=== PATIENT | female | born 1935 | race Caucasian/White ===

== ENCOUNTER 2017-02-16 11:35 | Emergency (ER) | payer MEDICARE, OTHER ==
[2017-02-16] MEDS ORDERED: Bacitracin Zinc 1 Packet ONE (14:17)
--- NOTE | 2017-02-16 14:19 | RAD ---
FOUR VIEWS CERVICAL SPINE: INDICATION: Fall with head pain and neck pain. FINDINGS: There is moderate to severe multilevel facet osteoarthritic change involving the cervical spine. Pro minent degenerative disk disease is seen at C6-7. There is slight anterior translation of C3 on C4 a nd C5 on C6 which is likely degenerative in nature. No acute fracture is evident. Prevertebral soft tissues are normal appearing. Lateral masses are symmetric. Lung apices are clear. IMPRESSION: 1. No acute fracture or subluxation. 2. Moderate to prominent spondylosis of the cervical spine. POS: [facility]
== END 2017-02-16 15:13 | disposition home or self-care (01) ==
LOC: ERS 11:35
DX: S00.83XA Contusion of other part of head, initial encounter (principal); S50.812A Abrasion of left forearm, initial encounter; I10 Essential (primary) hypertension; E03.9 Hypothyroidism, unspecified; G70.00 Myasthenia gravis without (acute) exacerbation; Z79.899 Other long term (current) drug therapy; W01.10XA Fall on same level from slipping, tripping and stumbling with subsequent striking against unspecified object, initial encounter
CPT/HCPCS: 72040

== ENCOUNTER 2018-06-19 09:55 | Day surgery (SDC) | payer MEDICARE, OTHER ==
[2018-06-18 13:57] VITALS: BMI 27.3
[~2018-06-19 09:55] MED LIST: PROPOFOL 200 MG/20 ML VIAL ONE
--- NOTE | 2018-06-19 13:14 | OP ---
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 PROCEDURES PERFORMED: Colonoscopy with snare polypectomy. INDICATIONS: 1. Rectal bleeding. 2. Discharge from anus. 3. Personal history of colon polyps, with last colonoscopy almost 5 years ago. MEDICATIONS: See Anesthesia record. FINDINGS: After discussion of the risks, benefits, and alternatives of the procedure, informed consent was obtained and witnessed. Pre-endoscopic cardiopulmonary examination was satisfactory. Time-out was performed before sedation was achieved. Sedation was achieved with Anesthesia assistance in the endoscopy unit. Digital rectal exam was performed. The patient has a prolapsing anal polyp, which is pedunculated. At first, this appeared to look like a prolapsing hemorrhoid, but upon better examination with the scope, it had a characteristic frondlike and pitted appearance more consistent with a polyp. A Pentax adult colonoscope was inserted and forward and retroflexed views of the rectum were obtained. This anal polyp is pedunculated measuring about 1.2 cm in diameter, and it bases in an area of large internal hemorrhoids. I did not obtain biopsies or try to resect this polyp due to its location. The endoscope was then advanced forward to the cecum in the usual fashion. The cecal base was identified by the appendiceal orifice as well as the ileocecal valve. The terminal ileum was not intubated. The colonoscope was then slowly withdrawn in a gradual and circumferential manner with careful examination of the entire colonic mucosa. The quality of the prep was good. There was a tiny 1 mm sessile polyp in the cecum, which was completely removed with cold snare and retrieved for pathology. In the ascending colon, there was a 3 mm sessile polyp, which was completely removed with cold snare and retrieved for pathology. In the sigmoid colon, there was another tiny polyp measuring 1 or 2 mm, which was completely removed with cold snare and retrieved for pathology. There were a few small diverticula in the sigmoid colon. The remainder of the colonic mucosa appears normal. Re-examination of the rectum again demonstrated the 1.2 cm pedunculated anal polyp, which I did not resect, as well as large internal hemorrhoids. The colonoscope was completely withdrawn and the patient allowed to recover. The patient tolerated the procedure well. There were no immediate postprocedure complications. IMPRESSION: 1. 1.2 cm pedunculated anal polyp, not biopsied or removed on this examination. 2. Large internal hemorrhoids. 3. 1 mm cecal polyp, completely removed with cold snare and retrieved for pathology. 4. 3 mm ascending colon polyp, completely removed with cold snare and retrieved for pathology. 5. 1 to 2 mm tiny sigmoid polyp, completely removed with cold snare and retrieved for pathology. 6. Sigmoid diverticulosis. RECOMMENDATIONS: 1. Follow up pathology on the colon polyps. 2. Surgical referral for transanal excision of the anal polyp, also consideration of hemorrhoidectomy. 3. Consider followup colonoscopy at a 3-year interval, due to her significant personal history of polyps. We would discuss surveillance at that time prior to proceeding, due to the patient's age and comorbidities. Job ID: [id number]
== END 2018-06-19 13:15 | disposition home or self-care (01) ==
LOC: SDC 09:55
PROVIDERS: ATTEND Internal Medicine
PROC: 0DBK8ZX Excision of Ascending Colon, Via Natural or Artificial Opening Endoscopic, Diagnostic (ICD-10-PCS; principal; 2018-06-19)
PROC: 0DBN8ZX Excision of Sigmoid Colon, Via Natural or Artificial Opening Endoscopic, Diagnostic (ICD-10-PCS; 2018-06-19)
PROC: 0DBH8ZX Excision of Cecum, Via Natural or Artificial Opening Endoscopic, Diagnostic (ICD-10-PCS; 2018-06-19)
DX: K62.5 Hemorrhage of anus and rectum (principal); D12.0 Benign neoplasm of cecum; D12.5 Benign neoplasm of sigmoid colon; K63.5 Polyp of colon; K64.8 Other hemorrhoids; K57.30 Diverticulosis of large intestine without perforation or abscess without bleeding; K62.0 Anal polyp; G70.00 Myasthenia gravis without (acute) exacerbation; Z86.010 Personal history of colon polyps; Z79.899 Other long term (current) drug therapy; Z88.4 Allergy status to anesthetic agent; Z88.5 Allergy status to narcotic agent; Z88.8 Allergy status to other drugs, medicaments and biological substances
CPT/HCPCS: 88305; J2704

== ENCOUNTER 2018-07-01 09:51 | Outpatient (CLI) | payer MEDICARE, OTHER | END 2018-07-01 09:52 | disposition home or self-care (01) | LOC: LABBT 09:51 | PROVIDERS: ATTEND Surgery | DX: Z01.818 Encounter for other preprocedural examination (principal); K64.8 Other hemorrhoids; K62.0 Anal polyp | CPT/HCPCS: 93005; 93010 ==

== ENCOUNTER 2018-07-08 06:00 | Day surgery (SDC) | payer MEDICARE, OTHER ==
[2018-07-01 09:57] VITALS: BMI 27.5
[2018-07-08] MEDS ORDERED: Sodium Chloride 0.9% 100 ML ONE (06:45)
[2018-07-08] MEDS ORDERED: cefOXitin 2 GM VIAL ONE (06:45)
[2018-07-08] MEDS ORDERED: Fentanyl 100 MCG/2 ML VIAL ONE (06:56)
[2018-07-08] MEDS ORDERED: Famotidine/PF 20 mg/2ml Vial ONE (07:26)
[2018-07-08] MEDS ORDERED: Bupivacaine/Epinephrine 0.25% 30 ML VIAL ONE (07:59)
[2018-07-08] MEDS ORDERED: PROPOFOL 200 MG/20 ML VIAL ONE (14:20)
[2018-07-08] MEDS ORDERED: ePHEDrine 50 MG/ML VIAL ONE (14:20)
[2018-07-08] MEDS ORDERED: Dexamethasone 20 MG/5 ML VIAL ONE (14:20)
[2018-07-08] MEDS ORDERED: Ondansetron PF 4 MG/2 ML Vial ONE (14:20)
--- NOTE | 2018-07-08 15:21 | OP ---
DATE OF PROCEDURE: 07/08/2018 PREOPERATIVE DIAGNOSES: 1. Internal hemorrhoids. 2. Rectal mass. POSTOPERATIVE DIAGNOSES: 1. Internal hemorrhoids. 2. Rectal mass. PROCEDURES PERFORMED: 1. Transanal excision of rectal mass. 2. PPH-stapled hemorrhoidectomy. ANESTHESIA: General. ESTIMATED BLOOD LOSS: Minimal. COMPLICATIONS: None. SPECIMENS: 1. Polypoid anorectal mass. 2. Internal hemorrhoids. DESCRIPTION OF PROCEDURE: The patient was taken to the operating room and laid supine on the operating room table. After general anesthetic was obtained, she was placed in the prone position. Her buttock crease was taped open. Her perineal and anal areas were prepped and draped in a sterile fashion. The polypoid mass was easily seen just above the dentate line. It was cauterized and excised with a good gross margin and sent to [facility] for final diagnosis. The obturator and sphincter protector were then placed in the anal canal and used to protect the sphincter muscles during the hemorrhoidectomy portion of the procedure. This was sutured to the perianal skin using silk suture. A pursestring of Prolene was placed above the dentate line. This pursestring was tied down loosely to hold the anvil in place above the hemorrhoids. The stapler was closed within the green zone and fired. There was a good ring of tissues obtained. A few bleeders on the staple line were oversewn using Vicryl sutures. The base of the polypoid mass that was removed. This included with the ring of hemorrhoids. Gelfoam was packed in the anal canal. The patient was sent to Recovery in stable condition. All instrument counts, needle counts, and lap counts were correct. Job ID: [id number]
== END 2018-07-08 10:28 | disposition home or self-care (01) ==
LOC: SDC 06:00
PROVIDERS: ATTEND Surgery
PROC: 06BY3ZC Excision of Hemorrhoidal Plexus, Percutaneous Approach (ICD-10-PCS; principal; 2018-07-08)
PROC: 0DBQ7ZX Excision of Anus, Via Natural or Artificial Opening, Diagnostic (ICD-10-PCS; 2018-07-08)
DX: K64.8 Other hemorrhoids (principal); D12.9 Benign neoplasm of anus and anal canal; J45.909 Unspecified asthma, uncomplicated; K21.9 Gastro-esophageal reflux disease without esophagitis; M19.90 Unspecified osteoarthritis, unspecified site; E03.9 Hypothyroidism, unspecified; Z88.4 Allergy status to anesthetic agent; Z88.5 Allergy status to narcotic agent; Z88.8 Allergy status to other drugs, medicaments and biological substances; Z79.899 Other long term (current) drug therapy
CPT/HCPCS: 88304; 88305; J0131; J0694; J1100; J2405; J2704; J3010; J3490; S0028

== ENCOUNTER 2018-10-22 11:43 | Inpatient (IN) | payer MEDICARE, OTHER ==
--- NOTE | 2018-10-22 11:59 | CT ---
CT Brain WO Con: 10/22/2018 12:00 AM CLINICAL HISTORY: Stroke with slurred speech and right facial droop. COMPARISON: None. FINDINGS: Hemorrhage: None. Ventricular system: Normal in size and morphology for the patient's age. Cerebral parenchyma: Microvascular ischemic disease Midline shift: None. Mass: No mass effect. Calvarium: Decreased pneumatization of right mastoid air cells. Visualized Paranasal sinuses: Clear. IMPRESSION: No acute intracranial intracranial hemorrhage or mass effect. Telephone call to Dr. Chet Kendall placed at 1155 hours.
[2018-10-22] MEDS ORDERED: methylPREDNISolone Sod Succ/PF 125 MG/2 ML VIAL ONE (12:01)
[2018-10-22 12:02] LABS: #Basophils 0.1 thou/uL (0.0-0.2); #Eosinphils 0.1 thou/uL (0.0-0.7); #Lymphocytes 3.8 thou/uL (1.20-3.40); #Neutrophils 7.8 thou/uL (1.40-6.50); %Basophils 0.5 % (0.0-1.0); %Eosinophils 0.9 % (0.0-10.0); %Lymphocytes 29.9 % (21.0-51.0); %Monocytes 7.6 % (0.0-10.0); %Neutrophils 61.2 % (42.0-75.0); Hemoglobin 14.4 g/dL (12.0-16.0); Mean Corpuscular HGB CONC 32.5 g/dL (32.0-36.0); Mean Corpuscular Hemoglobin 29.4 pg (27.0-31.0); Mean Corpuscular Volume 90.4 fL (78.0-98.0); Mean Platelet Volume 8.4 fL (7.4-10.4); Platelet Count 219 thou/uL (130-400); RBC Distribution Width 13.3 % (11.5-14.5); Red Blood Cell (RBC) Count 4.91 mill/uL (4.20-5.40); White Blood Cell (WBC) Count 12.7 thou/uL (4.8-10.8)
[2018-10-22 12:12] LABS: INR-International Normal Ratio 0.9; PTT 24.6 SEC (22.9-36.1); Prothrombin Time 12.5 SEC (12.0-14.7)
[2018-10-22 12:15] LABS: ALT (SGPT) 23 U/L (8-55); AST (SGOT) 20 U/L (5-34); Albumin 4.3 g/dL (3.4-4.8); Alkaline Phosphatase 53 U/L (40-150); Anion Gap 12 mmol/L (10-20); BUN (Urea Nitrogen) 18 mg/dL (9.8-20.1); Bilirubin, Total 0.5 mg/dL (0.2-1.2); CK (CPK) 215 U/L (29-168); Calc. Creatinine Clearance 0 mL/min (70-130); Calcium 9.8 mg/dL (7.8-10.44); Carbon Dioxide 28 mmol/L (23-31); Chloride 102 mmol/L (98-107); Estimated GFR-MDRD 68; Globulin 2.8 g/dL (2.4-3.5); Glucose 92 mg/dL (83-110); Potassium 3.5 mmol/L (3.5-5.1); Protein, Total 7.1 g/dL (6.0-8.3); Sodium 138 mmol/L (136-145)
[2018-10-22] MEDS ORDERED: hydrALAZINE 20 MG/ML VIAL ONE (13:37)
[2018-10-22] MEDS ORDERED: Senokot S 8.6-50 MG TAB PO PRN (13:59)
[2018-10-22] MEDS ORDERED: Bisacodyl 5 MG TAB PO PRN (13:59)
[2018-10-22] MEDS ORDERED: HYDROcodone/Acetaminophen 5/325 mg Tablet PO PRN (13:59)
[2018-10-22] MEDS ORDERED: Acetaminophen 325 MG TAB PO PRN (13:59)
[2018-10-22] MEDS ORDERED: HYDROcodone/Acetaminophen 7.5/325 mg Tablet PO PRN (13:59)
[2018-10-22] MEDS ORDERED: Ondansetron ODT 4 MG TAB PO PRN (13:59)
[2018-10-22] MEDS ORDERED: Ondansetron PF 4 MG/2 ML Vial IVP PRN (13:59)
[2018-10-22] MEDS ORDERED: Aspirin Chewable 81 MG TAB ONE (14:30)
--- NOTE | 2018-10-22 15:40 | ULT ---
BILATERAL CAROTID DUPLEX ULTRASOUND: HISTORY: TIA TECHNIQUE: Grayscale, color-flow and spectral Doppler ultrasound imaging of the extracranial carotid artery syst ems was performed bilaterally. FINDINGS: Mild plaque formation. The peak systolic velocity in the right ICA measures 122 cm/s. The peak systolic velocity in the left ICA measures 121 cm/s. Vertebral flow: antegrade, bilaterally. IMPRESSION: No hemodynamically significant stenosis of Both ICAs.
[2018-10-22] MEDS ORDERED: hydrALAZINE 20 MG/ML VIAL SLOW IVP PRN (16:02)
[2018-10-22 16:31] LABS: Free T4 (Free Thyroxine) 0.9 ng/dL (0.70-1.48)
[2018-10-22] MEDS ORDERED: Pyridostigmine Bromide IR 60 MG TAB PO SCH ×2 (17:00)
[2018-10-22 17:08] VITALS: BMI 26.8
--- NOTE | 2018-10-22 17:28 | MRI ---
BRAIN MRI WITHOUT CONTRAST: 10/22/18 COMPARISON: None. HISTORY: Slurred speech and right facial droop. TECHNIQUE: Multiplanar and multisequence MR imaging of the brain is obtained without contrast. FINDINGS: The diffusion weighted imaging demonstrates no evidence for acute infarction. The axial gradient echo imaging demonstrates no evidence for intracranial hemorrhage. There are numerous subcentimeter foci of increased T2 and FLAIR signal involving the periventricular, deep and subcortical white matter, evidence of small vessel disease. Regional bone marrow signal int ensity appears within normal limits. Imaged paranasal sinuses and mastoid air cells are unremarkable aside from partial opacification of the mastoid air cells on the right. Arterial flow voids at the axial level of the skull base appear grossly unremarkable on the T2 weight ed imaging. IMPRESSION: Evidence of small vessel disease. No evidence for acute infarction. POS: [facility]
[2018-10-22] MEDS: Pyridostigmine Bromide 180 MG SRTAB PO SCH (17:57)
[2018-10-22] MEDS ORDERED: methylPREDNISolone Sod Succ/PF 125 MG/2 ML VIAL IVP SCH (18:00)
[2018-10-22] MEDS: Famotidine 20 MG TAB PO SCH (21:02)
--- NOTE | 2018-10-22 21:02 | HP ---
CHIEF COMPLAINT: Slurred speech and generalized weakness. HISTORY OF PRESENT ILLNESS: Ms. Serrano is a very pleasant 83-year-old white female with past medical history of myasthenia gravis, hypertension, hypothyroidism, and osteoarthritis. The patient had worsening of neurologic symptoms over the past several weeks. The patient has been evaluated by her primary care physician, who diagnosed her with a myasthenic gravis exacerbation and she was placed on oral prednisone therapy. The patient has been taking oral prednisone 40 mg for the last 5 days and was supposed to be taking her last dose today. The patient has been complaining of worsening generalized fatigue and easy fatigability, also complicating the patient's presentation at this time. She saw her primary care physician roughly 3 weeks ago for low thyroid and at that time, she was told to decrease the frequency of taking her hypothyroid medicine. The patient is unsure whether her doctor told her to take her levothyroxine every other day or every week, therefore, she states that she has been taking her levothyroxine 1 time per week only. This has been roughly 3 weeks, where she has only been getting levothyroxine 1 time per week. The patient has also been moving and in the process of moving boxes, she has been very tired lately. The patient's family and friends came in to check on her this morning and when she was having slurred speech and possible right-sided motor deficits. They called her primary care physician, who told her to go to the emergency department for further evaluation. I find the patient in the emergency department. She is sitting upright in bed, surrounded by her family and friends. The patient is in no apparent distress. She is breathing well on room air without difficulties. The patient does have right-sided facial asymmetry and it is difficult for her to keep her right eye open. There is also some very faint weakness on the right hand, however, the lower extremity does appear to be symmetric. The patient's weakness, however, is fatigable, consistent with her myasthenia gravis disease. I asked the patient to look up with her eyes while keeping her head in a straightforward over a period of 30 seconds. The patient's eyes slowly get more and more closed. This does seem to be asymmetrical in more significant and pronounced on the right side of her body, however. With concerns for acute CVA, the patient admitted to medical unit with telemetry for close observation. We will consult Neurology to further delineate myasthenia gravis crisis versus acute CVA. MRI of the brain will also be helpful to separate stroke from myasthenia crisis. PAST MEDICAL HISTORY: 1. Myasthenia gravis. 2. Hypothyroidism. 3. Hypertension. 4. GERD. 5. Osteoarthritis. MEDICATIONS: 1. Pyridostigmine 60 mg 1 tablet p.o. 4 times per day. 2. Lisinopril 10 mg 1 tablet p.o. daily. 3. Levothyroxine 112 mcg 1 tablet p.o. daily. 4. Prednisone 40 mg 1 tablet p.o. daily for 5 days, was recently started and last dose is today for acute myasthenia crisis. SOCIAL HISTORY: The patient is a nonsmoker. Denies daily alcohol use, no recreational drug use, and she is retired. REVIEW OF SYSTEMS: A 10-point review of systems was conducted and negative aside from what mentioned in history of present illness. ALLERGIES: ANESTHETIC MEDICATIONS-AMIDE TYPE, NARCOTICS, AND MUSCLE RELAXANTS. PHYSICAL EXAMINATION: VITAL SIGNS: Blood pressure 178/89, heart rate 75, temperature 98.8, and respirations 16. GENERAL: The patient is alert, in no apparent distress. She is answering questions appropriately. The patient does seem very tired and fatigable. HEENT: Head is normocephalic and atraumatic. Pupils are equally round and reactive to light and accommodation. Extraocular muscles are intact. When testing the patient looking up for roughly 30 seconds, she did have fatigability consistent with myasthenia crisis and slowly her right eye shut to the point where it was nearly closed. This is more pronounced on the right side rather than the left. THROAT: No appreciated tonsillar exudates or erythema. LUNGS: Clear to auscultation bilaterally without wheezing, rales, or rhonchi. CARDIAC: S1 and S2 present. No appreciated murmurs, rubs, or gallops. BACK: Paraspinal muscles are soft and nontender to palpation. There is good alignment of the spine. ABDOMEN: Soft, nontender, and nondistended without focal guarding or rigidity. EXTREMITIES: There is no lower extremity edema. No gross deformities in the upper or lower extremities. NEUROLOGIC: The patient does have a facial asymmetry on the right side with ptosis of the eye. This is fatigable and worsened with myasthenia gravis. The patient does have right-sided motor weakness that is very mild. This also appears to be fatigable. Right lower extremity motor sensation is intact and symmetric. LABORATORY DATA: WBC 12.7, RBC 4.9, hemoglobin 14.4, hematocrit 44.4, MCV 90.4, and platelets 219. PT 12.5, INR is 0.9, PTT 24.6, sodium 138, potassium 3.5, chloride 102, carbon dioxide 28, anion gap of 12, BUN 18, creatinine 0.8, estimated GFR 68, glucose 92, calcium 9.8, total bilirubin 0.5, AST 20, ALT 23, alkaline phosphatase 53, creatine kinase 215, troponin 0.017. Serum total protein 7.1, albumin 4.3, TSH 11.7. RADIOGRAPHIC IMAGING: CT scan of the brain-please see full report for details. ASSESSMENT: 1. Right-sided motor deficits acutely worsening concerning for cerebrovascular accident. The patient does have myasthenia gravis at baseline, which complicates this patient's overall neurologic exam. There is facial asymmetry on the right and the right eye ptosis. This is also fatigable and with repetitive use of muscles does get worse. There is also some right-sided weakness in the right hand/arm. The right lower extremity does appear to be symmetric at this time. MRI brain ordered to rule out acute cerebrovascular accident. Echocardiogram to monitor for heart failure and structural abnormalities of the heart that may explain weakness. Carotid ultrasound ordered to monitor for hemodynamically significant stenosis. Neurology consultation requested for further recommendations. 2. Myasthenia gravis with acute crisis, the patient has just finished a course of 5 days of prednisone. The patient's home dose of pyridostigmine is quite low and up titration is reasonable. The patient is on the current starting dose at 60 mg 4 times per day, with a maximum dose of per day. It is reasonable that this medication should be increased. I will add on IV Solu-Medrol at this time to also help with acute crisis. 3. Hypothyroidism, the patient has been erroneously taking her levothyroxine 1 time per week rather than the recommended daily dosing. We will restart the patient on daily dosing of levothyroxine and she will need an outpatient followup for this in the next 6 weeks with her primary care physician. 4. Malignant hypertension, restart the patient's home medications, we will add on p.r.n. medications to lower blood pressure acutely as needed. 5. Osteoarthritis. Job ID: [id number]
[2018-10-23] MEDS: Pyridostigmine Bromide 180 MG SRTAB PO SCH ×4 (00:24→17:54)
[2018-10-23] MEDS ORDERED: Furosemide 40 MG/4 ML VIAL SLOW IVP SCH (01:00)
[2018-10-23] MEDS: Levothyroxine Sodium 112 MCG TAB PO SCH (05:08)
[2018-10-23 05:23] LABS: #Lymphocytes 1.5 thou/uL (1.20-3.40); #Monocytes 0.7 thou/uL (0.11-0.59); #Neutrophils 6.1 thou/uL (1.40-6.50); %Basophils 0.1 % (0.0-1.0); %Eosinophils 0.2 % (0.0-10.0); %Lymphocytes 17.8 % (21.0-51.0); %Monocytes 7.8 % (0.0-10.0); Hemoglobin 13.1 g/dL (12.0-16.0); Mean Corpuscular HGB CONC 32.7 g/dL (32.0-36.0); Mean Corpuscular Hemoglobin 29.7 pg (27.0-31.0); Mean Corpuscular Volume 90.6 fL (78.0-98.0); Mean Platelet Volume 8.6 fL (7.4-10.4); Platelet Count 208 thou/uL (130-400); RBC Distribution Width 13.2 % (11.5-14.5); Red Blood Cell (RBC) Count 4.41 mill/uL (4.20-5.40); White Blood Cell (WBC) Count 8.3 thou/uL (4.8-10.8)
[2018-10-23 05:58] LABS: Anion Gap 11 mmol/L (10-20); BUN (Urea Nitrogen) 17 mg/dL (9.8-20.1); Calc. Creatinine Clearance 69 mL/min (70-130); Carbon Dioxide 28 mmol/L (23-31); Chloride 105 mmol/L (98-107); Estimated GFR-MDRD 71; Glucose 116 mg/dL (83-110); Potassium 3.7 mmol/L (3.5-5.1); Sodium 140 mmol/L (136-145)
[2018-10-23] MEDS: predniSONE 20 MG TAB PO SCH (08:59)
[2018-10-23] MEDS: Lisinopril 10 MG TAB PO SCH (08:59)
[2018-10-23] MEDS: Famotidine 20 MG TAB PO SCH ×2 (09:01→21:16)
[2018-10-23] MEDS ORDERED: hydrALAZINE 20 MG/ML VIAL SLOW IVP PRN (10:29)
--- NOTE | 2018-10-23 16:57 | PRG ---
DATE OF SERVICE: 10/23/2018 Ms. Serrano was admitted due to some increased slurred speech related to her myasthenia gravis. She has also been having a bit of ptosis and some intermittent double vision. These symptoms have been present for 2 to 3 years now. My nurse practitioner has been adjusting steroids over the last 2 weeks to try to get her symptoms under control. She was subsequently brought to the emergency room and admitted for a stroke workup. Her MRI of the brain and echocardiogram were negative. Her Mestinon was increased 2 days ago to 90 mg q.6 hours. She has been on the 40 mg dose of prednisone for just 2 days. I have suggested that we bump her up to 60 mg per day on the prednisone and continue the Mestinon at the current dose. There is nothing further I would do in-house. Other options might include referring her out for plasmapheresis in [place] or possibly robotic surgery for thymectomy. Job ID: [id number]
[2018-10-24] MEDS: Pyridostigmine Bromide 180 MG SRTAB PO SCH ×3 (00:32→11:58)
[2018-10-24 05:27] LABS: #Basophils 0.1 thou/uL (0.0-0.2); #Eosinphils 0.1 thou/uL (0.0-0.7); #Monocytes 0.8 thou/uL (0.11-0.59); #Neutrophils 5.5 thou/uL (1.40-6.50); %Basophils 0.7 % (0.0-1.0); %Eosinophils 0.5 % (0.0-10.0); %Lymphocytes 31.9 % (21.0-51.0); %Monocytes 8.3 % (0.0-10.0); %Neutrophils 58.6 % (42.0-75.0); Hemoglobin 13.7 g/dL (12.0-16.0); Mean Corpuscular HGB CONC 33.3 g/dL (32.0-36.0); Mean Corpuscular Hemoglobin 30.5 pg (27.0-31.0); Mean Corpuscular Volume 91.7 fL (78.0-98.0); Mean Platelet Volume 8.9 fL (7.4-10.4); Platelet Count 207 thou/uL (130-400); RBC Distribution Width 13.6 % (11.5-14.5); Red Blood Cell (RBC) Count 4.48 mill/uL (4.20-5.40); White Blood Cell (WBC) Count 9.4 thou/uL (4.8-10.8)
[2018-10-24] MEDS: Levothyroxine Sodium 112 MCG TAB PO SCH (05:38)
[2018-10-24 05:47] LABS: Anion Gap 8 mmol/L (10-20); BUN (Urea Nitrogen) 17 mg/dL (9.8-20.1); Calc. Creatinine Clearance 70 mL/min (70-130); Calcium 8.8 mg/dL (7.8-10.44); Carbon Dioxide 29 mmol/L (23-31); Chloride 107 mmol/L (98-107); Estimated GFR-MDRD 74; Glucose 92 mg/dL (83-110); Potassium 3.7 mmol/L (3.5-5.1); Sodium 140 mmol/L (136-145)
[2018-10-24] MEDS: Famotidine 20 MG TAB PO SCH (08:13)
[2018-10-24] MEDS: Lisinopril 10 MG TAB PO SCH (08:16)
[2018-10-24] MEDS: predniSONE 20 MG TAB PO SCH (08:16)
[2018-10-24 11:33] VITALS: TEMP 97.3
[2018-10-24 12:00] VITALS: BP 143/81
--- NOTE | 2018-10-24 13:10 | PRG ---
DATE OF SERVICE: 10/24/2018 Ms. Serrano reports that she is feeling well today. She had an uneventful night. Her vital signs have been stable. She is running a pulse in the 50s. She has been afebrile. On exam, there is no evidence of ptosis. Eye movements are intact. She has good facial strength. Her speech is clear. Extremity strength is normal bilaterally. Her myasthenia appears to be doing reasonably well at this point. Continue the current regimen with Mestinon at 90 mg q.6 hours and the prednisone at 40 mg per day. She will follow up with us in the office. Job ID: [id number]
--- NOTE | 2018-10-24 14:33 | DIS ---
DATE OF ADMISSION: 10/23/2018 DATE OF DISCHARGE: 10/24/2018 DISCHARGE DISPOSITION: Home. FOLLOWUP: 1. Follow up with primary care physician, Dr. Ramos Coombs in 1 week. 2. Follow up with Dr. Barajas as scheduled. DISCHARGE MEDICATIONS: 1. Prednisone 40 mg daily. 2. Mestinon 90 mg every 6 hourly. 3. Protonix 40 mg daily. 4. Lisinopril 10 mg daily. 5. Vitamin D3 of 2000 units daily. 6. Calcium carbonate 500 mg daily. 7. Levothyroxine 112 mcg daily. The patient was seen and examined on the day of discharge. Denies any new complaints. No chest pain, shortness of breath, palpitations, or new focal deficit reported. BRIEF HOSPITAL COURSE: The patient is an 83-year-old female with myasthenia gravis, currently followed by Dr. Barajas, presented to the hospital with slurred speech along with generalized weakness. She was admitted to the Stroke Unit with suspected CVA. MRI of the brain showed evidence of small-vessel disease without any acute infarction. Initial CT scan of the brain was negative as well. Carotid Doppler was negative for hemodynamically significant stenosis. Echocardiogram showed left ventricular ejection fraction 60% to 65% with diastolic dysfunction, with [id number] aortic regurgitation, and moderate tricuspid regurgitation. She was evaluated by Dr. Barajas, who increased Mestinon to 90 mg every 6 hourly and continue prednisone at 40 mg daily. She has been cleared by Dr. Barajas for discharge. FINAL DIAGNOSES: 1. Generalized weakness along with slurred speech secondary to myasthenia gravis exacerbation. 2. Hypothyroidism. 3. Hypertension. 4. Gastroesophageal reflux disease. 5. Degenerative joint disease. 6. Chronic kidney disease stage 2. PLAN: Plan of care was discussed with the patient in detail. She stated understanding. Job ID: [id number]
== END 2018-10-24 13:15 | disposition home health service (06) | DRG 57 ==
LOC: ERS 11:43 → 2SE 13:21 → OBSVTOIN 10-23 17:01
PROVIDERS: ADMIT Internal Medicine; ATTEND Internal Medicine
DX: G70.01 Myasthenia gravis with (acute) exacerbation (principal); E03.9 Hypothyroidism, unspecified; M19.90 Unspecified osteoarthritis, unspecified site; K21.9 Gastro-esophageal reflux disease without esophagitis; I08.2 Rheumatic disorders of both aortic and tricuspid valves; Z96.641 Presence of right artificial hip joint; N18.2 Chronic kidney disease, stage 2 (mild); I12.9 Hypertensive chronic kidney disease with stage 1 through stage 4 chronic kidney disease, or unspecified chronic kidney disease; Z79.52 Long term (current) use of systemic steroids; Z88.5 Allergy status to narcotic agent
CPT/HCPCS: 36415; 36416; 70450; 70551; 80048; 80053; 82550; 84439; 84443; 84481; 84484; 85025; 85610; 85730; 93005; 93306; 93880; 96374; 96375; J0360; J2930; J7512; J7620; P9045

== ENCOUNTER 2019-04-27 19:38 | Emergency (ER) | payer MEDICARE, OTHER | END 2019-04-27 20:00 | disposition left against medical advice (07) | LOC: ERS 19:38 | DX: Z53.21 Procedure and treatment not carried out due to patient leaving prior to being seen by health care provider (principal) ==

== ENCOUNTER 2019-05-13 13:56 | Outpatient (CLI) | payer MEDICARE, OTHER ==
--- NOTE | 2019-05-13 15:50 | CT ---
CT OF THE THORAX WITHOUT IV CONTRAST: 05/13/19 INDICATION: History of myasthenia gravis. COMPARISON: Prior exam dated 11/30/15. FINDINGS: No definite anterior mediastinal mass is demonstrated. There are scattered calcified granuloma within both lungs as well as calcified lymph nodes within the mediastinum and hilar regions. Mild emphysema is present. Mild pleural parenchymal scarring involvin g the lung apices is stable appearing. Small hypodensities seen within the left thyroid lobe appear similar to prior examination. Previously seen nodular density lateral to the left 6th rib is no longer identified. May reflect a focal hemato ma or enlarged lymph node. Visualized upper abdomen reveals no definite acute abnormality. There is scattered degenerative and o steoarthritic change. No definite acute osseous abnormality is evident. IMPRESSION: 1. No anterior mediastinal mass identified to suggest a thymic tumor. 2. Findings of prior granulomatous disease. POS: [facility]
== END 2019-05-13 13:57 | disposition home or self-care (01) ==
LOC: BICCT 13:56
PROVIDERS: ATTEND Psychiatry & Neurology Neurology
DX: G70.00 Myasthenia gravis without (acute) exacerbation (principal)
CPT/HCPCS: 71250

== ENCOUNTER 2019-07-25 20:00 | Emergency (ER) | payer MEDICARE, OTHER ==
[2019-07-26] MEDS ORDERED: Adacel (T-DAP) 0.5 ML SYRINGE ONE (00:19)
--- NOTE | 2019-07-26 06:17 | CT ---
CT BRAIN WITHOUT CONTRAST: HISTORY: Trauma. COMPARISON: CT brain from 10/22/2018. FINDINGS: There is no acute hemorrhage or infarct. No midline shift or mass effect. Ventricular size and extraa xial CSF spaces are normal. The calvarium is intact. There is an effusion at the right mastoid. Small contusion of the left forehead. IMPRESSION: No acute posttraumatic intracranial sequela. POS: [facility]
== END 2019-07-26 00:43 | disposition home or self-care (01) ==
LOC: ERS 20:00
DX: S09.90XA Unspecified injury of head, initial encounter (principal); S01.112A Laceration without foreign body of left eyelid and periocular area, initial encounter; I10 Essential (primary) hypertension; G70.00 Myasthenia gravis without (acute) exacerbation; Z79.899 Other long term (current) drug therapy; W22.8XXA Striking against or struck by other objects, initial encounter
CPT/HCPCS: 12011; 70450; 90471; 90715

== ENCOUNTER 2019-08-03 07:38 | Outpatient (CLI) | payer MEDICARE, OTHER ==
[2019-08-03 18:46] LABS: SARS-CoV-2 MS2 Positive; SARS-CoV-2 N Gene Negative; SARS-CoV-2 S Gene Negative; SARS-CoV-2 orf1ab Negative
== END 2019-08-03 07:39 | disposition home or self-care (01) ==
LOC: LABBT 07:38
PROVIDERS: ATTEND Internal Medicine
DX: Z01.812 Encounter for preprocedural laboratory examination (principal); Z11.59 Encounter for screening for other viral diseases; D12.9 Benign neoplasm of anus and anal canal
CPT/HCPCS: 87635; U0003

== ENCOUNTER 2019-08-05 07:49 | Day surgery (SDC) | payer MEDICARE, OTHER ==
[2019-08-03 11:00] VITALS: BMI 26.9
[2019-08-05] MEDS ORDERED: PROPOFOL 200 MG/20 ML VIAL ONE (10:41)
[2019-08-05] MEDS ORDERED: Glycopyrrolate 0.2 MG/ML 5 ML SYRINGE ONE (10:41)
--- NOTE | 2019-08-05 11:23 | OP ---
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 PROCEDURE PERFORMED: Colonoscopy with polypectomy. 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 MEDICATIONS: See Anesthesia record. FINDINGS: After discussion of the risks, benefits, and alternatives of the procedure, informed consent was obtained and witnessed. Pre-endoscopic cardiopulmonary examination was satisfactory. Time-out was performed before sedation was achieved. Sedation was achieved with Anesthesia assistance in the endoscopy unit. A digital rectal exam was performed. The patient does have external hemorrhoids. There was no palpable mass on digital exam. A Pentax adult colonoscope was inserted into the anus. Forward and retroflexed views of the rectum were obtained. There are postoperative changes of stapled hemorrhoidectomy at the dentate line. There was minimal residual hemorrhoidal tissue. There was no evidence of any recurrent polyp or mass lesion in this area. Overall, surgical result looks very good. The endoscope was then passed proximally to the cecum, which was identified by the appendiceal orifice as well as the ileocecal valve. The terminal ileum was intubated and the ileal mucosa appeared normal. The colonoscope was slowly withdrawn in a gradual and circumferential manner with careful examination of the entire colonic mucosa. The quality of the prep was good. There was a tiny 2-mm polyp in the cecum, which was completely removed with cold snare and retrieved for pathology. There was another small polyp in the sigmoid colon also measuring about 2 mm, completely removed with cold snare and retrieved for pathology. There was diverticulosis in the sigmoid colon. The remainder of the colonic mucosa appears normal. The colonoscope was completely withdrawn and the patient allowed to recover. The patient tolerated the procedure well. There were no immediate postprocedure complications. IMPRESSION: 1. External hemorrhoids. 2. Postoperative changes of stapled hemorrhoidectomy at the dentate line. No recurrent polyp or mass lesion in this area. 3. Tiny cecal polyp, cold snared and retrieved for pathology. 4. Tiny sigmoid polyp, cold snared and retrieved for pathology. 5. Sigmoid diverticulosis. RECOMMENDATIONS: 1. Follow up pathology on the two tiny colon polyps. 2. Follow up in 3 years for consideration of repeat surveillance colonoscopy, dependent on the patient's overall health status and comorbidities at that time. Job ID: [id number]
== END 2019-08-05 11:24 | disposition home or self-care (01) ==
LOC: SDC 07:49
PROVIDERS: ATTEND Internal Medicine
PROC: 0DBH8ZX Excision of Cecum, Via Natural or Artificial Opening Endoscopic, Diagnostic (ICD-10-PCS; principal; 2019-08-05)
PROC: 0DBN8ZX Excision of Sigmoid Colon, Via Natural or Artificial Opening Endoscopic, Diagnostic (ICD-10-PCS; 2019-08-05)
DX: Z12.11 Encounter for screening for malignant neoplasm of colon (principal); D12.0 Benign neoplasm of cecum; D12.5 Benign neoplasm of sigmoid colon; K64.4 Residual hemorrhoidal skin tags; K57.30 Diverticulosis of large intestine without perforation or abscess without bleeding; G70.00 Myasthenia gravis without (acute) exacerbation; Z86.010 Personal history of colon polyps; Z79.52 Long term (current) use of systemic steroids; Z79.899 Other long term (current) drug therapy; Z88.4 Allergy status to anesthetic agent; Z88.8 Allergy status to other drugs, medicaments and biological substances
CPT/HCPCS: 88305; 93005; 93010; J2704

== ENCOUNTER 2019-09-24 22:24 | Emergency (ER) | payer MEDICARE, OTHER ==
--- NOTE | 2019-09-24 23:52 | ULT ---
EXAM: Right lower extremity venous Doppler HISTORY: Right lower extremity pain and edema for 2 weeks. FINDINGS: Grayscale, color-flow, Doppler evaluation, spectral analysis of the right lower extremity venous stru ctures is performed with 2-D imaging. The right common femoral, superficial femoral, popliteal, posterior tibial, proximal greater saphenous and profunda femoral veins are imaged. There is normal luminal compressibility, flow, and augmentation in the visualized deep venous structu res of the right lower extremity. There is a mildly complex cystic appearing structure posterior to the right knee measuring 3.7 cm x 1 .5 cm x 2.3 cm. No flow is seen within this structure on color flow evaluation. IMPRESSION: 1. No evidence of a deep vein thrombosis in the visualized deep venous structures right lower extremi ty. 2. Findings likely due to mildly complex small Galo's cyst posterior to the knee.
== END 2019-09-25 00:40 | disposition home or self-care (01) ==
LOC: ERS 22:24
DX: I10 Essential (primary) hypertension (principal); R60.0 Localized edema; Z79.899 Other long term (current) drug therapy

== ENCOUNTER 2020-08-05 09:30 | Outpatient (CLI) | payer MEDICARE | END 2020-08-05 09:31 | disposition home or self-care (01) | LOC: BICMAMMO 09:30 | PROVIDERS: ATTEND Internal Medicine | DX: N63.20 Unspecified lump in the left breast, unspecified quadrant (principal); N63.15 Unspecified lump in the right breast, overlapping quadrants | CPT/HCPCS: 76642 ×2; 77066; G0279 ==

== ENCOUNTER → 2020-08-11 | Day surgery (SDC) | payer MEDICARE | LOC: BICULT 12:22 | PROVIDERS: ATTEND Internal Medicine | PROC: 0H9T3ZX Drainage of Right Breast, Percutaneous Approach, Diagnostic (ICD-10-PCS; principal; 2020-08-11) | DX: C50.811 Malignant neoplasm of overlapping sites of right female breast (principal); Z17.0 Estrogen receptor positive status [ER+]; Z88.4 Allergy status to anesthetic agent; Z88.5 Allergy status to narcotic agent; Z88.8 Allergy status to other drugs, medicaments and biological substances | CPT/HCPCS: 19083; 88305 ==

== ENCOUNTER 2020-09-12 13:49 | Outpatient (CLI) | payer MEDICARE ==
[2020-09-12 14:58] LABS: Anion Gap 11 mmol/L (10-20); BUN (Urea Nitrogen) 19 mg/dL (9.8-20.1); Calc. Creatinine Clearance 0 mL/min (70-130); Calcium 9.9 mg/dL (7.8-10.44); Carbon Dioxide 32 mmol/L (23-31); Chloride 103 mmol/L (98-107); Glucose 104 mg/dL (83-110); Potassium 4.1 mmol/L (3.5-5.1); Sodium 142 mmol/L (136-145)
[2020-09-12 15:17] LABS: #Basophils 0.1 10x3/uL (0.0-0.2); #Eosinphils 0.1 10x3/uL (0.0-0.5); #Monocytes 0.9 10x3/uL (0.0-1.1); #Neutrophils 7.7 10x3/uL (1.5-8.4); %Basophils 0.6 % (0.0-2.0); %Eosinophils 0.9 % (0.0-6.0); %Lymphocytes 23.6 % (18.0-47.0); %Monocytes 7.7 % (0.0-10.0); %Neutrophils 66.8 % (40.0-75.0); Hemoglobin 13.9 g/dL (12.0-15.5); Mean Corpuscular HGB CONC 33.5 g/dL (32.0-36.0); Mean Corpuscular Hemoglobin 32.2 pg (27.0-33.0); Mean Corpuscular Volume 96.1 fl (81.6-98.3); Mean Platelet Volume 10.6 fl (7.4-10.4); Platelet Count 258 10x3/uL (150-450); RBC Distribution Width 13.7 % (11.5-14.5); Red Blood Cell (RBC) Count 4.32 10x6/uL (3.90-5.03); White Blood Cell (WBC) Count 11.5 10x3/uL (3.5-10.5)
== END 2020-09-12 13:50 | disposition home or self-care (01) ==
LOC: LABBT 13:49
PROVIDERS: ATTEND Surgery
DX: Z01.818 Encounter for other preprocedural examination (principal); C50.911 Malignant neoplasm of unspecified site of right female breast
CPT/HCPCS: 80048; 85025; 93005; 93010

== ENCOUNTER 2021-03-17 10:52 | Outpatient (CLI) | payer MEDICARE | END 2021-03-17 10:53 | disposition home or self-care (01) | LOC: CTENTCT 10:52 | PROVIDERS: ATTEND Specialist | DX: J32.9 Chronic sinusitis, unspecified (principal) | CPT/HCPCS: 70486 ==

== ENCOUNTER 2021-07-07 15:39 | Emergency (ER) | payer MEDICARE ==
[2021-07-07] MEDS ORDERED: Chloroprocaine 3% PF 20 ML VIAL IM SCH (16:45)
[2021-07-07] MEDS ORDERED: Boostrix 0.5 ML (Tdap) VIAL ONE (17:50)
== END 2021-07-07 18:08 | disposition home or self-care (01) ==
LOC: ERS 15:39
DX: S06.0X0A Concussion without loss of consciousness, initial encounter (principal); S01.81XA Laceration without foreign body of other part of head, initial encounter; M79.645 Pain in left finger(s); I10 Essential (primary) hypertension; Z23 Encounter for immunization; Z79.899 Other long term (current) drug therapy; Z79.82 Long term (current) use of aspirin; W01.0XXA Fall on same level from slipping, tripping and stumbling without subsequent striking against object, initial encounter
CPT/HCPCS: 12051; 70450; 90471; 90715; J2400

== ENCOUNTER 2021-08-11 09:42 | Outpatient (CLI) | payer MEDICARE | END 2021-08-11 09:43 | disposition home or self-care (01) | LOC: BICMAMMO 09:42 | PROVIDERS: ATTEND Surgery | DX: C50.919 Malignant neoplasm of unspecified site of unspecified female breast (principal) | CPT/HCPCS: 77066; G0279 ==

== ENCOUNTER 2021-09-22 11:10 | Outpatient (CLI) | payer MEDICARE | END 2021-09-22 11:11 | disposition home or self-care (01) | LOC: CTENTCT 11:10 | PROVIDERS: ATTEND Student in an Organized Health Care Education/Training Program | DX: H65.90 Unspecified nonsuppurative otitis media, unspecified ear (principal) | CPT/HCPCS: 70486 ==

== ENCOUNTER 2021-10-14 15:25 | Emergency (ER) | payer MEDICARE ==
[2021-10-14] MEDS ORDERED: Amlodipine 5 MG TAB ONE (17:00)
== END 2021-10-14 18:00 | disposition home or self-care (01) ==
LOC: ERS 15:25
DX: I10 Essential (primary) hypertension (principal); G70.00 Myasthenia gravis without (acute) exacerbation; Z79.82 Long term (current) use of aspirin; Z79.899 Other long term (current) drug therapy
CPT/HCPCS: 93005

== ENCOUNTER 2021-11-23 10:40 | Outpatient (CLI) | payer MEDICARE | END 2021-11-23 10:41 | disposition home or self-care (01) | LOC: BICMAMMO 10:40 | PROVIDERS: ATTEND Internal Medicine Hematology & Oncology | DX: Z13.820 Encounter for screening for osteoporosis (principal); C50.911 Malignant neoplasm of unspecified site of right female breast; M85.852 Other specified disorders of bone density and structure, left thigh; T38.6X5A Adverse effect of antigonadotrophins, antiestrogens, antiandrogens, not elsewhere classified, initial encounter | CPT/HCPCS: 77080 ==

== ENCOUNTER 2022-12-10 10:27 | Outpatient (CLI) | payer MEDICARE | END 2022-12-10 10:28 | disposition home or self-care (01) | LOC: BICMAMMO 10:27 | PROVIDERS: ATTEND Internal Medicine Hematology & Oncology | DX: Z13.820 Encounter for screening for osteoporosis (principal); T38.6X5D Adverse effect of antigonadotrophins, antiestrogens, antiandrogens, not elsewhere classified, subsequent encounter; M85.89 Other specified disorders of bone density and structure, multiple sites | CPT/HCPCS: 77080 ==